=== PATIENT | male | born 1995 | race Hispanic/Latino ===

== ENCOUNTER 2017-09-25 18:19 | Emergency (ER) | payer SELFPAY ==
[2017-09-25] MEDS ORDERED: NA CHLORIDE 0.9% 1,000 ML ONE (21:10)
[2017-09-25 21:15] LABS: Urine Blood NEGATIVE (NEG); Urine Glucose NEGATIVE (NEG); Urine Protein 1+ (NEG)
[2017-09-25 21:40] LABS: Absolute Lymphocytes (CBC) 1.1 K/uL (0.7-4.9); Absolute Monocytes 0.5 K/uL (0.1-1.3); Basophils % 0.4 % (0-1.3); Eosinophils % 2.2 % (0-4.4); Hematocrit 43.5 % (39.6-49.0); Lymphocytes % 10.3 % (15.3-44.8); MCH 28.7 pg (27.0-35.0); MCV 84.5 fL (80-100); MPV 7.6 fL (7.6-11.3); RBC Red Blood Cell Count 5.15 M/uL (4.33-5.43)
[2017-09-25 21:42] LABS: Bicarbonate 26 mEq/L (21-31); Glucose Level 115 mg/dL (65-120); Potassium 3.4 mEq/L (3.6-5.0); Sodium Level 133 mEq/L (135-145)
[2017-09-25 21:43] LABS: BUN Blood Urea Nitrogen 10 mg/dL (6-20)
--- NOTE | 2017-09-25 23:01 | ER ---
Nurse's Notes [facility] Name: Patricio Duenas Age: 21 yrs Sex: Male : 1995 Arrival Date: 09/25/2017 Time: 18:23 Bed 23 Private MD: None, None Diagnosis: Viral infection of unspecified site Presentation: 09/25 18:26 Presenting complaint: Patient states: frontal headache, dry eyes, weakness, midsternal sv CP that started Sunday. Transition of care: patient was not received from another setting of care. Onset of symptoms was September 24, 2017. Care prior to arrival: Medication(s) given: Tylenol. 18:26 Method Of Arrival: Ambulatory sv 18:26 Acuity: TABBY 3 sv 21:21 Risk Assessment: Do you want to hurt yourself or someone else? Patient reports no aj1 desire to harm self or others. Initial Sepsis Screen: Does the patient meet any 2 criteria? No. Patient's initial sepsis screen is negative. Does the patient have a suspected source of infection? No. Patient's initial sepsis screen is negative. Triage Assessment: 21:21 Headache History: Denies prior headaches. aj1 21:21 Pain: Also complains of fatigue. aj1 Historical: - Allergies: 18:28 No Known Allergies; sv - Home Meds: 18:28 None [Active]; sv - PMHx: 18:28 None; sv - PSHx: 18:28 Appendectomy; sv - Immunization history:: Adult Immunizations up to date. - Social history:: Smoking status: Patient uses tobacco products, smokes one-half pack cigarettes per day. - Ebola Screening: : No symptoms or risks identified at this time. Screenin:00 Abuse screen: Denies threats or abuse. Denies injuries from another. Nutritional aj1 screening: No deficits noted. Tuberculosis screening: No symptoms or risk factors identified. 23:02 Fall Risk None identified. lp1 Assessment: 21:00 General: Appears in no apparent distress. uncomfortable, Behavior is calm, cooperative, aj1 appropriate for age. Pain: Complains of pain in left frontal area and right frontal area Pain does not radiate. Pain currently is 7 out of 10 on a pain scale. Quality of pain is described as aching, Pain began 1 day ago. Neuro: Level of Consciousness is awake, alert, obeys commands, Oriented to person, place, time, situation, Applications Architect are equal bilaterally Moves all extremities. Full function Gait is steady, Speech is normal, Facial symmetry appears normal. Cardiovascular: Denies palpitations, shortness of breath, Heart tones S1 S2 present Patient's skin is warm and dry. Respiratory: Airway is patent Respiratory effort is even, unlabored, Respiratory pattern is regular, symmetrical, Breath sounds are clear bilaterally. Denies cough, shortness of breath. GI: No signs and/or symptoms were reported involving the gastrointestinal system. Patient currently denies diarrhea, nausea, vomiting. : No signs and/or symptoms were reported regarding the genitourinary system. EENT: Reports dry eyes. Denies nasal congestion, nasal discharge. Derm: No signs and/or symptoms reported regarding the dermatologic system. Skin is pink, warm \T\ dry. normal. Musculoskeletal: No signs and/or symptoms reported regarding the musculoskeletal system. Circulation, motion, and sensation intact. 22:18 Reassessment: Patient appears in no apparent distress at this time. No changes from aj1 previously documented assessment. Patient and/or family updated on plan of care and expected duration. Pain level reassessed. Patient is alert, oriented x 3, equal unlabored respirations, skin warm/dry/pink. 23:02 Reassessment: Patient appears in no apparent distress at this time. Patient is alert, lp1 oriented x 3, equal unlabored respirations, skin warm/dry/pink. Patient states feeling better. Vital Signs: 18:28 BP 139 / 88; Pulse 83; Resp 18; Temp 97.9; Pulse Ox 98% on R/A; Weight 113.4 kg; Height sv 6 ft. 2 in. (187.96 cm); Pain 7/10; 21:00 BP 116 / 75; Pulse 78; Resp 18; Pulse Ox 98% on R/A; aj1 22:18 BP 103 / 54; Pulse 73; Resp 18; Pulse Ox 99% ; aj1 23:03 BP 115 / 60; Pulse 73; Resp 18; Pulse Ox 99% on R/A; lp1 18:28 Body Mass Index 32.10 (113.40 kg, 187.96 cm) sv ED Course: 18:23 Patient arrived in ED. mr 18:24 None, None is Private Physician. mr 18:27 Triage completed. sv 18:28 Arm band placed on left wrist. sv 18:29 Patient placed in waiting room, Patient notified of wait time. sv 20:52 Alejandra Marrero, RN is Primary Nurse. aj1 20:53 Yassine Gardiner PA is PHCP. jr8 20:53 Daryn Huitron MD is Attending Physician. jr8 21:00 Patient has correct armband on for positive identification. aj1 21:00 No provider procedures requiring assistance completed. aj1 21:20 Initial lab(s) drawn, by me, sent to lab. Inserted saline lock: 20 gauge in right aj1 antecubital area, using aseptic technique. Blood collected. 23:35 IV discontinued, No redness/swelling at site. Pressure dressing applied. lp1 Administered Medications: 21:20 Drug: NS 0.9% 1000 ml Route: IV; Rate: 1000 ml; Site: right antecubital; aj1 23:36 Follow up: IV Status: Completed infusion; IV Intake: 800ml lp1 Intake: 23:36 IV: 800ml; Total: 800ml. lp1 Outcome: 23:01 Discharge ordered by . jr8 23:35 Discharged to home ambulatory. lp1 23:35 Condition: good 23:35 Discharge instructions given to patient, Instructed on discharge instructions, follow up and referral plans. Demonstrated understanding of instructions, follow-up care. 23:36 Patient left the ED. lp1 Signatures: Alejandra Marrero, RN RN aj1 Ema Inman RN RN Hortensia Burnett Laura, RN RN lp1 Yassine Gardiner PA PA jr8
--- NOTE | 2017-09-25 23:02 | EDPHYS ---
Physician Documentation [facility] Name: Patricio Duenas Age: 21 yrs Sex: Male : 1995 Arrival Date: 09/25/2017 Time: 18:23 Bed 23 Private MD: None, None ED Physician Daryn Huitron HPI: 09/25 21:22 This 21 yrs old Male presents to ER via Ambulatory with complaints of jr8 Headache, Weakness. 21:22 Patient stated that since yesterday has had fevers, body aches, headache, weakness. jr8 Denies cough, congestion, sore throat, runny nose, sinus congestion, n/v/d. Severity of symptoms: At their worst the symptoms were mild in the emergency department the symptoms are unchanged. The patient has not experienced similar symptoms in the past. The patient has not recently seen a physician. Historical: - Allergies: 18:28 No Known Allergies; sv - Home Meds: 18:28 None [Active]; sv - PMHx: 18:28 None; sv - PSHx: 18:28 Appendectomy; sv - Immunization history:: Adult Immunizations up to date. - Social history:: Smoking status: Patient uses tobacco products, smokes one-half pack cigarettes per day. - Ebola Screening: : No symptoms or risks identified at this time. ROS: 21:22 Eyes: Negative for injury, pain, redness, and discharge, ENT: Negative for injury, jr8 pain, and discharge, Neck: Negative for injury, pain, and swelling, Cardiovascular: Negative for chest pain, palpitations, and edema, Respiratory: Negative for shortness of breath, cough, wheezing, and pleuritic chest pain, Abdomen/GI: Negative for abdominal pain, nausea, vomiting, diarrhea, and constipation, Back: Negative for injury and pain, MS/Extremity: Negative for injury and deformity, Skin: Negative for injury, rash, and discoloration. 21:22 Constitutional: Positive for body aches, chills, fatigue, fever, malaise. 21:22 Neuro: Positive for headache, Negative for altered mental status, dizziness, gait disturbance, hearing loss, loss of consciousness, numbness, seizure activity, speech changes, syncope, near syncope, tingling, tinnitus, tremor, visual changes, weakness. Exam: 21:22 Head/Face: Normocephalic, atraumatic. Eyes: Pupils equal round and reactive to light, jr8 extra-ocular motions intact. Lids and lashes normal. Conjunctiva and sclera are non-icteric and not injected. Cornea within normal limits. Periorbital areas with no swelling, redness, or edema. ENT: Nares patent. No nasal discharge, no septal abnormalities noted. Tympanic membranes are normal and external auditory canals are clear. Oropharynx with no redness, swelling, or masses, exudates, or evidence of obstruction, uvula midline. Mucous membranes moist. Neck: Trachea midline, no thyromegaly or masses palpated, and no cervical lymphadenopathy. Supple, full range of motion without nuchal rigidity, or vertebral point tenderness. No Meningismus. Cardiovascular: Regular rate and rhythm with a normal S1 and S2. No gallops, murmurs, or rubs. Normal PMI, no JVD. No pulse deficits. Respiratory: Lungs have equal breath sounds bilaterally, clear to auscultation and percussion. No rales, rhonchi or wheezes noted. No increased work of breathing, no retractions or nasal flaring. Abdomen/GI: Soft, non-tender, with normal bowel sounds. No distension or tympany. No guarding or rebound. No evidence of tenderness throughout. Back: No spinal tenderness. No costovertebral tenderness. Full range of motion. Skin: Warm, dry with normal turgor. Normal color with no rashes, no lesions, and no evidence of cellulitis. MS/ Extremity: Pulses equal, no cyanosis. Neurovascular intact. Full, normal range of motion. Neuro: Awake and alert, GCS 15, oriented to person, place, time, and situation. Cranial nerves II-XII grossly intact. Motor strength 5/5 in all extremities. Sensory grossly intact. Cerebellar exam normal. Normal gait. Vital Signs: 18:28 BP 139 / 88; Pulse 83; Resp 18; Temp 97.9; Pulse Ox 98% on R/A; Weight 113.4 kg; Height sv 6 ft. 2 in. (187.96 cm); Pain 7/10; 21:00 BP 116 / 75; Pulse 78; Resp 18; Pulse Ox 98% on R/A; aj1 22:18 BP 103 / 54; Pulse 73; Resp 18; Pulse Ox 99% ; aj1 23:03 BP 115 / 60; Pulse 73; Resp 18; Pulse Ox 99% on R/A; lp1 18:28 Body Mass Index 32.10 (113.40 kg, 187.96 cm) sv MDM: 20:53 Patient medically screened. 21:24 Differential Diagnosis flu, mono, meningitis, electrolyte abnormalities, glucose jr8 abnormalities, dehydration, UTI. 23:00 Data reviewed: vital signs, nurses notes, lab test result(s), and as a result, I will jr8 discharge patient. Data interpreted: Pulse oximetry: on room air is 99 %. Interpretation: normal. Counseling: I had a detailed discussion with the patient and/or guardian regarding: the historical points, exam findings, and any diagnostic results supporting the discharge/admit diagnosis, lab results, the need for outpatient follow up, a family practitioner, to return to the emergency department if symptoms worsen or persist or if there are any questions or concerns that arise at home. Response to treatment: patient is well hydrated. 09/25 21:02 Order name: CBC with Diff; Complete Time: 21:47 rust 09/25 21:02 Order name: Basic Metabolic Panel; Complete Time: 21:47 09/25 21:02 Order name: IV; Complete Time: 21:20 rust 09/25 21:02 Order name: Jones Screen Profile; Complete Time: 21:57 rust 09/25 21:12 Order name: Urine Dipstick--Ancillary (enter results) eb 09/25 21:02 Order name: Urine Dipstick-Ancillary (obtain specimen); Complete Time: 21:20 Administered Medications: 21:20 Drug: NS 0.9% 1000 ml Route: IV; Rate: 1000 ml; Site: right antecubital; aj1 23:36 Follow up: IV Status: Completed infusion; IV Intake: 800ml lp1 Disposition: 09/26 06:47 Co-signature as Attending Physician, Daryn Huitron MD. rn Disposition: 09/25/17 23:01 Discharged to Home. Impression: Viral infection of unspecified site. - Condition is Stable. - Discharge Instructions: Viral Infections. - Work release form, Medication Reconciliation Form, Thank You Letter, Antibiotic Education, Prescription Opioid Use form. - Follow up: Private Physician; When: 5 - 6 days; Reason: Recheck today's complaints, Continuance of care, Re-evaluation by your physician. - Problem is new. - Symptoms have improved. Signatures: Dispatcher [employer] EDAlejandra Hudson RN RN aj1 Ema Inman RN RN Daryn Blanco MD MD rn Pena, Laura, RN RN lp1 Yassine Gardiner PA PA jr8 Corrections: (The following items were deleted from the chart) 09/25 23:36 23:01 09/25/2017 23:01 Discharged to Home. Impression: Viral infection of unspecified lp1 site. Condition is Stable. Forms are Medication Reconciliation Form, Thank You Letter, Antibiotic Education, Prescription Opioid Use. Follow up: Private Physician; When: 5 - 6 days; Reason: Recheck today's complaints, Continuance of care, Re-evaluation by your physician. Problem is new. Symptoms have improved. jr8
== END 2017-09-25 23:36 | disposition home or self-care (01) ==
LOC: ER 18:19
DX: B34.9 Viral infection, unspecified (principal); F17.210 Nicotine dependence, cigarettes, uncomplicated
CPT/HCPCS: 36415; 80048; 81003; 85025; 86308; 96360; 96361; 99284; J7030

== ENCOUNTER 2019-05-06 20:46 | Emergency (ER) | payer SELFPAY ==
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
[2019-05-06] MEDS ORDERED: FENTANYL CITR 100 MCG/2 ML ONE (21:13)
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
--- NOTE | 2019-05-07 14:40 | EKG ---
Test Date: 2018-05-06 Test Time: 20:50:45 Camp Housekeeper: NORMA MEASUREMENT RESULTS: Intervals: Rate: 98 SC: 148 QRSD: 80 QT: 326 QTc: 416 Emily: P: 18 SC: 148 QRS: 1 T: 1 INTERPRETIVE STATEMENTS: Normal sinus rhythm Minimal voltage criteria for LVH, may be normal variant Borderline ECG No previous ECG available for comparison [employer] Error - Incorrect date on EKG This EKG was performed on 05/06/2019 Electronically Signed On 05-07-19 14:39:28 [employer] SAL[employer] by Chi Salgado
== END 2019-05-06 22:03 | disposition home or self-care (01) ==
LOC: ER 20:46
DX: S40.012A Contusion of left shoulder, initial encounter (principal); V43.52XA Car driver injured in collision with other type car in traffic accident, initial encounter; Y93.89 Activity, other specified; Y92.410 Unspecified street and highway as the place of occurrence of the external cause; Z72.0 Tobacco use
CPT/HCPCS: 71045; 93005; 96374; 99284; J3010